=== PATIENT | female | born 1990 | race Caucasian/White ===

== ENCOUNTER 2017-04-09 03:07 | Emergency (ER) | payer MEDICAID, OTHER ==
[~2017-04-09] VITALS: Ht 157.5 cm; Wt 49.9 kg
--- NOTE | 2017-04-09 03:29 | NUR ---
PT C/O N/V AND DIARRHEA X3 HOURS. DENIES PAIN. DR BARAHONA AT BEDSIDE FOR MSE
[2017-04-09] MEDS ORDERED: IV NORMAL SALINE 1000 ML BAG IV ONE ×2 (03:30→04:30)
[2017-04-09] MEDS ORDERED: ONDANSETRON 4 MG/2 ML VIAL IV ONE (03:30)
[2017-04-09 03:48] LABS: BASOPHILS % (AUTO) 0.2 % (0.0-2.0); EOSINOPHILS % (AUTO) 0.1 % (0.0-7.0); HEMATOCRIT 46.6 % (31.2-41.9); LYMPHOCYTES # (AUTO) 1.1 K/uL (20.0-40.0); LYMPHOCYTES % (AUTO) 5.3 % (20.5-51.5); MEAN CORPUSCULAR HEMOGLOBIN 31.2 uug (24.7-32.8); MEAN CORPUSCULAR HGB CONC 34 g/dL (32.3-35.6); MONOCYTES # (AUTO) 0.7 K/uL (2.0-10.0); MONOCYTES % (AUTO) 3.3 % (0.0-11.0); NEUTROPHILS # (AUTO) 19.5 K/uL (1.8-8.9); NEUTROPHILS % (AUTO) 91.1 % (38.5-71.5); PLATELET COUNT (AUTO) 290 K/uL (179-408); RED BLOOD CELL COUNT(AUTO) 5.12 MIL/uL (3.63-4.92); WHITE BLOOD COUNT (AUTO) 21.4 K/uL (3.8-11.8)
[2017-04-09] MEDS ORDERED: ONDANSETRON 4 MG/2 ML VIAL ONE ×2 (03:55→04:07)
[2017-04-09 04:05] LABS: POTASSIUM 3.1 mmol/L (3.5-5.1)
[2017-04-09 04:13] LABS: BILIRUBIN,DIRECT 0.1 mg/dL (0.0-0.2); BILIRUBIN,TOTAL 0.7 mg/dL (0.2-1.0); TOTAL PROTEIN, SERUM 8.6 g/dL (6.4-8.2)
[2017-04-09] MEDS ORDERED: diphenhydrAMINE 50 MG/1 ML VIAL IV ONE (04:30)
[2017-04-09] MEDS ORDERED: METOCLOPRAMIDE HCL 10 MG/2 ML VIAL IV ONE (04:30)
[2017-04-09] MEDS ORDERED: diphenhydrAMINE 50 MG/1 ML VIAL ONE (04:50)
[2017-04-09] MEDS ORDERED: METOCLOPRAMIDE HCL 10 MG/2 ML VIAL ONE (04:50)
--- NOTE | 2017-04-09 05:30 | NUR ---
PT RESTING IN POSITION OF COMFORT, NO EPISODES OF EMESIS. BOYFRIEND AT BEDSIDE.
--- NOTE | 2017-04-09 06:29 | NUR ---
PT GIVEN PO CHALLENGE TO SEE IF ABLE TO TOLERATE
--- NOTE | 2017-04-09 06:50 | NUR ---
PT DENIES NAUSEA AT THIS TIME. IV DC'ED CATHETER INTACT, NO BLEEDING NOTED.
[2017-04-09 07:00] VITALS: BP 91/54
--- NOTE | 2017-04-09 07:00 | NUR ---
Patient discharged to home in stable conditon. Written and verbal after care instructions given. Patient verbalizes understanding of instructions. Ambulated out of ER w/ steady gait
== END 2017-04-09 07:03 | disposition home or self-care (01) ==
LOC: ER 03:10
DX: R19.7 Diarrhea, unspecified (principal); E86.0 Dehydration; Z87.442 Personal history of urinary calculi; R11.2 Nausea with vomiting, unspecified
CPT/HCPCS: 36415; 80048; 80076; 84703; 85025; 96374; 96375; 99284; A4663; J1200; J2405 ×2; J2765; J7030 ×2

== ENCOUNTER 2017-04-24 03:42 | Inpatient (IN) | payer OTHER ==
[~2017-04-24] VITALS: Ht 157.5 cm; Wt 47.6 kg
--- NOTE | 2017-04-24 04:10 | NUR ---
MOLINA SEGAL AT BEDSIDE FOR MSE.
--- NOTE | 2017-04-24 04:11 | NUR ---
PT PRESENTS TO ED W/ C/O N/V AND DIARRHEA [id number]. STATES SHE "HASNT BEEN ABLE TO KEEP ANYTHING DOWN". SYMPTOMS WORSENED AROUND 0100 THIS MORNING.
[2017-04-24] MEDS ORDERED: IV NORMAL SALINE 1000 ML BAG IV ONE (04:15)
[2017-04-24] MEDS ORDERED: KETOROLAC TROMETHAMINE 15 MG INJ IV ONE (04:15)
[2017-04-24] MEDS ORDERED: METOCLOPRAMIDE HCL 10 MG/2 ML VIAL IV ONE (04:15)
--- NOTE | 2017-04-24 04:27 | NUR ---
[facility] AT PT BEDSIDE
[2017-04-24] MEDS ORDERED: KETOROLAC TROMETHAMINE 15 MG INJ ONE (04:36)
[2017-04-24] MEDS ORDERED: METOCLOPRAMIDE HCL 10 MG/2 ML VIAL ONE (04:36)
[2017-04-24 04:46] LABS: CREATININE 0.8 mg/dL (0.6-1.3); POTASSIUM 3.4 mmol/L (3.5-5.1)
[2017-04-24 04:51] LABS: BILIRUBIN,DIRECT 0.1 mg/dL (0.0-0.2); BILIRUBIN,TOTAL 0.6 mg/dL (0.2-1.0); TOTAL PROTEIN, SERUM 3.7 g/dL (6.4-8.2)
[2017-04-24 05:12] LABS: BASOPHILS % (AUTO) 0.2 % (0.0-2.0); EOSINOPHILS % (AUTO) 0.1 % (0.0-7.0); HEMATOCRIT 38.9 % (31.2-41.9); HEMOGLOBIN 13.1 g/dL (10.9-14.3); LYMPHOCYTES # (AUTO) 1.6 K/uL (20.0-40.0); LYMPHOCYTES % (AUTO) 6.8 % (20.5-51.5); MEAN CORPUSCULAR HEMOGLOBIN 30.5 uug (24.7-32.8); MEAN CORPUSCULAR HGB CONC 34 g/dL (32.3-35.6); MEAN CORPUSCULAR VOLUME 90.8 fL (75.5-95.3); MONOCYTES # (AUTO) 1.6 K/uL (2.0-10.0); MONOCYTES % (AUTO) 6.5 % (0.0-11.0); NEUTROPHILS % (AUTO) 86.4 % (38.5-71.5); PLATELET COUNT (AUTO) 270 K/uL (179-408); RED BLOOD CELL COUNT(AUTO) 4.29 MIL/uL (3.63-4.92); WHITE BLOOD COUNT (AUTO) 24.2 K/uL (3.8-11.8)
--- NOTE | 2017-04-24 05:15 | NUR ---
PT AMBULATED TO RESTROOM W/ STEADY GAIT. DENIES DIZZINESS OR FEELING LIGHTHEADED.
[2017-04-24] MEDS ORDERED: ACETAMINOPHEN/CODEINE 120-12 MG PER 5 ML LIQUID UDC PO ONE (05:30)
--- NOTE | 2017-04-24 05:34 | NUR ---
PT AMBULATED TO RESTROOM W/ STEADY GAIT. DENIES DIZZINESS OR FEELING LIGHTHEADED.
[2017-04-24] MEDS ORDERED: ACETAMINOPHEN/CODEINE 120-12 MG PER 5 ML LIQUID UDC ONE (05:50)
--- NOTE | 2017-04-24 05:57 | NUR ---
PT AMBULATED TO RESTROOM W/ STEADY GAIT. DENIES DIZZINESS OR FEELING LIGHTHEADED.
--- NOTE | 2017-04-24 05:58 | NUR ---
MOLINA MD AT BEDSIDE FOR EVAL AND UPDATE.
--- NOTE | 2017-04-24 06:00 | NUR ---
EPIC PAGED FOR PANEL. WAS TOLD DR FUNES WILL CALL BACK
[2017-04-24] MEDS ORDERED: METRONIDAZOLE 500 MG/NS 100 ML PIGGYBACK IV ONE (06:15)
[2017-04-24] MEDS ORDERED: LEVOFLOXACIN 750 MG/D5W 150 ML PIGGYBACK IV ONE (06:15)
--- NOTE | 2017-04-24 06:25 | NUR ---
CALLED [facility] FOR PANEL CALL. CALL BACK PENDING.
[2017-04-24] MEDS ORDERED: METRONIDAZOLE 500 MG/NS 100ML 100 ML IV ONE (06:36)
--- NOTE | 2017-04-24 06:41 | NUR ---
PT AMBULATED TO RESTROOM W/ STEADY GAIT. DENIES DIZZINESS OR FEELING LIGHTHEADED.
--- NOTE | 2017-04-24 06:55 | NUR ---
ER ON PHONE W/ PANEL
--- NOTE | 2017-04-24 06:56 | NUR ---
PT ACCEPTED BY DR FUNES FOR MED SURG INPATIENT ADMISSION. PENDING BED ASSIGNMENT FOR INPATIENT ADMISSION
[2017-04-24] MEDS ORDERED: MAGNESIUM HYDROXIDE 30 ML LIQUID UDC PO PRN (07:00)
[2017-04-24] MEDS ORDERED: HYDROCODONE/APAP 5-325MG TABLET PO PRN (07:00)
[2017-04-24] MEDS ORDERED: Z GUARD REMEDY PASTE 57 GM TUBE TOP PRN (07:00)
[2017-04-24] MEDS ORDERED: MORPHINE SULFATE 2 MG/1 ML DISP.SYRIN IV PRN (07:00)
[2017-04-24] MEDS ORDERED: ACETAMINOPHEN 325 MG TABLET PO PRN (07:00)
--- NOTE | 2017-04-24 07:08 | NUR ---
CALLED PLACED TO 2ND FLOOR, CALL BACK FROM [facility] PENDING FOR BED ASSIGNMENT
[2017-04-24] MEDS ORDERED: DICYCLOMINE HCL 10 MG/5 ML UDC LIQ PO ONE (07:15)
--- NOTE | 2017-04-24 07:16 | NUR ---
REPORT GIVEN TO BILL MACEDO. PT IN BED, NO ACUTE DISTRESS.
[2017-04-24] MEDS ORDERED: DICYCLOMINE HCL 10 MG/5 ML UDC LIQ ONE (07:27)
--- NOTE | 2017-04-24 07:51 | NUR ---
PT IS IN ROOM #1B. PT IS RESTING COMFORTABLY IN BED NOS/S OF ACUTE DISTRESS.
[2017-04-24] MEDS ORDERED: LEVOFLOXACIN 750MG/D5W 150 ML IV ONE (07:58)
[2017-04-24] MEDS: ONDANSETRON 4 MG/2 ML VIAL IV PRN (08:16)
[2017-04-24] MEDS: IV NS 1000 ML 1,000 ML IV PRN (08:17)
[2017-04-24] MEDS ORDERED: MORPHINE SULFATE 2 MG/1 ML DISP.SYRIN ONE (08:35)
[2017-04-24] MEDS ORDERED: ONDANSETRON 4 MG/2 ML VIAL ONE (08:36)
--- NOTE | 2017-04-24 10:12 | NUR ---
REPORT GIVEN TO M/S-CAR OILER. PT WAS TRANSFERED TO ROOM #120B.
--- NOTE | 2017-04-24 10:30 | NUR ---
PATIENT ARRIVED TO UNIT AT 1030 VIA WHEELCHAIR, STABLE, 106/58, 81 PULSE, 98.6 ORAL TEMPERATURE, 99% ROOM AIR, LEFT AC [address], DENIES PAIN AT THIS TIME, NO SIGNS OF DISTRESS, NOTED, AMBULATES INDEPENDENTLY, ALERT AND ORIENTED X3,
[2017-04-24 11:56] LABS: *OCCULT BLOOD STOOL NEGATIVE (NEGATIVE)
[2017-04-24] MEDS: MORPHINE SULFATE 4 MG/1 ML DISP.SYRIN IV PRN ×2 (12:37→16:56)
[2017-04-24] MEDS: METRONIDAZOLE 500 MG/NS 100ML 500 MG in PREMIXED 1 EACH IV SCH ×2 (14:00→21:36)
[2017-04-24] MEDS ORDERED: IOHEXOL 300MG/ML 100 ML INFUS..BTL ONE (14:10)
[2017-04-24] MEDS ORDERED: IV NORMAL SALINE 250 ML IV ONE (14:10)
[2017-04-24] MEDS ORDERED: BARIUM SULFATE 450 ML ORAL.SUSP ONE (14:10)
[2017-04-24] MEDS ORDERED: LORAZEPAM 2 MG/1 ML VIAL IV PRN (16:15)
--- NOTE | 2017-04-24 19:35 | NUR ---
Received pt in bed, AAO x 4, watching television. Significant other at bedside. No acute distress noted, verbalizing tiredness due to lack of sleep because of constantly using restroom. Denies pain or discomfort. All safety measures and fall precautions maintained. Call light and all personal belongings within reach. Will continue to monitor.
[2017-04-24 20:00] VITALS: BP 121/79
[2017-04-24] MEDS ORDERED: ZOLPIDEM 5 MG TABLET PO PRN (21:15)
[2017-04-24] MEDS ORDERED: ZOLPIDEM 5 MG TABLET ONE (21:38)
[2017-04-25 04:00] VITALS: BP 111/72
[2017-04-25] MEDS: METRONIDAZOLE 500 MG/NS 100ML 500 MG in PREMIXED 1 EACH IV SCH ×2 (05:28→14:03)
[2017-04-25] MEDS: IV NS 1000 ML 1,000 ML IV PRN (05:28)
[2017-04-25] MEDS ORDERED: LEVOFLOXACIN 500 MG/D5W 500 MG in PREMIXED 1 EACH IV SCH (08:00)
[2017-04-25 08:46] VITALS: BP 114/72
[2017-04-25 13:10] LABS: RED BLOOD CELL COUNT(AUTO) 4.04 MIL/uL (3.63-4.92); WHITE BLOOD COUNT (AUTO) 5.5 K/uL (3.8-11.8)
[2017-04-25 13:11] LABS: HEMATOCRIT 36.7 % (31.2-41.9); HEMOGLOBIN 12.4 g/dL (10.9-14.3)
[2017-04-25 13:12] LABS: MEAN CORPUSCULAR HEMOGLOBIN 30.8 uug (24.7-32.8); MEAN CORPUSCULAR HGB CONC 34 g/dL (32.3-35.6)
[2017-04-25 13:13] LABS: NEUTROPHILS % (AUTO) 65.7 % (38.5-71.5); PLATELET COUNT (AUTO) 210 K/uL (179-408)
[2017-04-25 13:14] LABS: EOSINOPHILS % (AUTO) 1.3 % (0.0-7.0); LYMPHOCYTES % (AUTO) 21.1 % (20.5-51.5); MONOCYTES % (AUTO) 11.2 % (0.0-11.0)
[2017-04-25 13:15] LABS: BASOPHILS % (AUTO) 0.7 % (0.0-2.0); NEUTROPHILS # (AUTO) 3.6 K/uL (1.8-8.9)
[2017-04-25 13:16] LABS: EOSINOPHILS # (AUTO) 0.1 K/uL (0.0-0.7); LYMPHOCYTES # (AUTO) 1.2 K/uL (20.0-40.0); MONOCYTES # (AUTO) 0.6 K/uL (2.0-10.0)
[2017-04-25] MEDS: MORPHINE SULFATE 4 MG/1 ML DISP.SYRIN IV PRN (13:41)
[2017-04-25] MEDS: ONDANSETRON 4 MG/2 ML VIAL IV PRN (13:42)
[2017-04-25 14:15] LABS: POTASSIUM 3.6 mmol/L (3.5-5.1)
[2017-04-25 14:17] LABS: CREATININE 0.7 mg/dL (0.6-1.3)
[2017-04-25 14:18] LABS: MAGNESIUM 1.7 mg/dL (1.8-2.4)
[2017-04-25] MEDS ORDERED: MAGNESIUM OXIDE 400 MG TABLET PO ONE (15:45)
[2017-04-25] MEDS ORDERED: METR500T PO (16:51)
[2017-04-25] MEDS ORDERED: ONDA4TAB5 PO (16:51)
[2017-04-25] MEDS ORDERED: LEVO500T2 PO (16:51)
--- NOTE | 2017-04-25 18:40 | NUR ---
Patient discharged home via wheelchair to private car assisted by (boyfriend), medication list faxed to [facility] pharmacy, exit care provided, discharge instructions given, vitals as follows 126/87, 89 pulse, 97.5 oral temperature, 20 respirations, 98% on room air, patient left facility in stable condition, doctors note provided for employer, no complaints of pain at this time, no signs of distress
[2017-04-26 14:07] LABS: *FECAL FAT NEUTRAL Normal (.); *FECAL FAT TOTAL Normal (.)
== END 2017-04-25 18:50 | disposition home or self-care (01) | DRG 248 ==
LOC: ER 03:47 → MEDSURG1 09:50
PROVIDERS: ADMIT Internal Medicine; ATTEND Internal Medicine
DX: A04.9 Bacterial intestinal infection, unspecified (principal); E83.42 Hypomagnesemia; E86.0 Dehydration; E87.6 Hypokalemia
CPT/HCPCS: 36415; 83690; 83735; 84100; 84703; 85025; 86625; 87046; 87177; 89055; A4663; J1885; J1956; J2060; J2270; J2405; J2765; J3490; J7030; J7050; Q9951; Q9967

== ENCOUNTER 2017-06-21 17:06 | Emergency (ER) | payer OTHER ==
[~2017-06-21] VITALS: Ht 157.5 cm; Wt 47.6 kg
[~2017-06-21 17:06] MED LIST: LEVO500T2 PO; METR500T PO; ONDA4TAB5 PO
[2017-06-21 17:42] LABS: *BILIRUBIN,URIN NEGATIVE (NEGATIVE); *BLOOD, URINE 2+ (NEGATIVE); *CLARITY,URINE TURBID (CLEAR); *COLOR,URINE RED (YELLOW); *KETONES,URINE TRACE (NEGATIVE); *UROBILINOGEN,URINE 0.2 E.U./dl (NORMAL); LEUKOCYTE ESTERASE ,URINE TRACE (NEGATIVE); NITRITE, URINE NEGATIVE (NEGATIVE); UGLUCOSE NEGATIVE (NEGATIVE)
[2017-06-21 17:46] LABS: *PROTEIN,URINE 3+ (NEGATIVE); RBC,URINE TNTC /HPF (0-3)
[2017-06-21 17:47] LABS: *URINE HCG, QUAL NEGATIVE (NEGATIVE); BACTERIA,URINE MODERATE /HPF (NONE SEEN); SQUAMOUS EPITHELIAL CELL,UR FEW /HPF (NONE SEEN)
--- NOTE | 2017-06-21 18:24 | NUR ---
Patient discharged to home in stable conditon. Written and verbal after care instructions given. Patient verbalizes understanding of instructions.
[2017-06-21 18:25] VITALS: BP 126/90
== END 2017-06-21 18:26 | disposition home or self-care (01) ==
LOC: ER 17:06
DX: R31.9 Hematuria, unspecified (principal); F17.210 Nicotine dependence, cigarettes, uncomplicated; Z79.2 Long term (current) use of antibiotics; Z79.899 Other long term (current) drug therapy
CPT/HCPCS: 84703; 87077; 87086; A4663

== ENCOUNTER 2019-05-08 21:22 | Emergency (ER) | payer OTHER ==
[~2019-05-08] VITALS: Ht 157.5 cm; Wt 49.9 kg
[2019-05-08] MEDS ORDERED: [UNRECOGNIZED DRUG - REMARK] (21:37)
--- NOTE | 2019-05-08 21:45 | NUR ---
Dr. Salas at bedside for MSE.
[2019-05-08] MEDS ORDERED: ONDANSETRON ODT 4 MG TAB.RAPDIS ONE (21:56)
[2019-05-08] MEDS ORDERED: ACETAMINOPHEN ES 500 MG TABLET ONE (21:56)
[2019-05-08] MEDS ORDERED: ACETAMINOPHEN ES 500 MG TABLET PO ONE (22:00)
[2019-05-08] MEDS ORDERED: ONDANSETRON ODT 4 MG TAB.RAPDIS SL ONE (22:00)
--- NOTE | 2019-05-08 22:35 | NUR ---
Patient discharged to home in stable conditon. Written and verbal after care instructions given. Patient verbalizes understanding of instructions. Pt ambulated out of ER with steady gait, no acute signs of distress, VSS, all belongings taken.
[2019-05-08 22:36] VITALS: BP 137/78
== END 2019-05-08 22:37 | disposition home or self-care (01) ==
LOC: ER 21:24
DX: J10.1 Influenza due to other identified influenza virus with other respiratory manifestations (principal); F17.200 Nicotine dependence, unspecified, uncomplicated; Z79.2 Long term (current) use of antibiotics; Z79.899 Other long term (current) drug therapy
CPT/HCPCS: 87400; A4663; A9150; Q0162